=== PATIENT | male | born 1985 | race Two or more races ===

== ENCOUNTER 2018-03-04 17:00 | Emergency (ER) | payer OTHER ==
[~2018-03-04] VITALS: Ht 170.2 cm; Wt 79.4 kg
[2018-03-04] MEDS ORDERED: PNEU16DI2 (17:44)
[2018-03-04] MEDS ORDERED: TILENOR (17:44)
== END 2018-03-04 21:40 | disposition home or self-care (01) ==
LOC: ER 17:00
DX: B34.9 Viral infection, unspecified (principal); J11.1 Influenza due to unidentified influenza virus with other respiratory manifestations

== ENCOUNTER 2019-03-17 15:50 | Inpatient (IN) | payer OTHER ==
[~2019-03-17] VITALS: Ht 170.2 cm; Wt 79.4 kg
[~2019-03-17 15:50] MED LIST: PNEU16DI2; TILENOR
--- NOTE | 2019-03-17 16:37 | NUR ---
PTE SE RECIBE POR HEMMORRHOIDS TROMBOSADAS REFIERE PTE.
--- NOTE | 2019-03-17 19:10 | NUR ---
SE ORIENTA AL PACIENTE SOBRE MUESTRAS Y MEDICAMENTOS. PACIENTE REFIERE ENTENDER. SE PROVEE EL DEXAMETHASONE 4MG IM. SE COLECTAN LAS MUESTRAS ANH ORDENADAS UTILIZANDO MEDIDAS ASEPTICAS Y SE ENVIAN AL LABORATORIO. PACIENTE PENDIENTE A SER CANALIZADO.
--- NOTE | 2019-03-17 20:23 | NUR ---
Clarence JIMENEZ, CANALIZA AL PACIENTE UTILIZANDO MEDIDAS ASEPTICAS. VERIFICA PATENTICIDAD DE LA MISMA. LA MISMA ESTA SAMANTHA DE EDEMA Y ERITEMA.
== END 2019-03-20 13:36 | disposition home or self-care (01) | DRG 395 ==
LOC: ER 15:50 → SURG 19:47 → MEDJ 19:47 → SURH 20:51 → SEC-K 21:04 → MEDJ 21:08 → SURH 03-18 15:10
PROVIDERS: ADMIT Colon & Rectal Surgery
DX: K64.5 Perianal venous thrombosis (principal)

== ENCOUNTER 2020-07-15 08:15 | Day surgery (SDC) | payer OTHER | END 2020-07-15 20:25 | disposition home or self-care (01) | LOC: CIR.AMB 08:15 | PROVIDERS: ATTEND Colon & Rectal Surgery | DX: K64.4 Residual hemorrhoidal skin tags (principal); K64.8 Other hemorrhoids; Z20.822 Contact with and (suspected) exposure to COVID-19 ==

== ENCOUNTER 2021-12-27 08:29 | Outpatient (CLI) | payer OTHER | END 2021-12-27 08:35 | disposition home or self-care (01) | LOC: LAB 08:29 | PROVIDERS: ATTEND Obstetrics & Gynecology | DX: Z20.828 Contact with and (suspected) exposure to other viral communicable diseases (principal); Z20.818 Contact with and (suspected) exposure to other bacterial communicable diseases ==